=== PATIENT | female | born 1960 | race American Indian/Alaskan Native ===

== ENCOUNTER 2017-11-05 13:00 | Emergency (ER) | payer OTHER ==
[2017-11-05 13:27] VITALS: BP 136/84
[2017-11-05] MEDS ORDERED: ASPIRIN PO ONE (13:27)
[2017-11-05 13:55] LABS: Basophils # (Auto) 0.1 K/mm3 (0.0-0.1); Basophils % (Auto) 0.9 % (0.0-1.8); Eosinophils # (Auto) 0.1 K/mm3 (0.0-0.4); Eosinophils % (Auto) 1.5 % (0.0-4.3); Hematocrit 39.2 % (30.3-42.9); Lymphocytes # (Auto) 2.1 K/mm3 (1.2-5.4); Lymphocytes % (Auto) 25.3 % (13.4-35.0); Mean Corpuscular HGB Conc 33 % (30-34); Mean Corpuscular Hemoglobin 28 pg (28-32); Mean Corpuscular Volume 85 fl (79-97); Monocytes # (Auto) 0.8 K/mm3 (0.0-0.8); Monocytes % (Auto) 9.4 % (0.0-7.3); Platelet Count 229 K/mm3 (140-440); Red Blood Count 4.62 M/mm3 (3.65-5.03); Red Cell Distribution Width 14.9 % (13.2-15.2)
[2017-11-05 14:47] LABS: BUN/Creatinine Ratio 16; Blood Urea Nitrogen 14 mg/dL (7-17); Calcium 9.3 mg/dL (8.4-10.2); Hemolysis Index 36
[2017-11-05] MEDS ORDERED: PEPCID PO ONE (14:54)
[2017-11-05] MEDS ORDERED: TYLENOL PO ONE (14:54)
[2017-11-05] MEDS ORDERED: NITROSTAT SL ONE (14:54)
--- NOTE | 2017-11-05 14:55 | Emergency Department Report ---
HPI - General Chief Complaint: Chest Pain Time Seen by Provider: 11/05/17 14:24 - HPI HPI: The patient is a 57-year-old female who presents for evaluation of chest pain. The patient reports chest pain since yesterday at noon, greater than 25 hours ago, pressure-like in quality, constant since onset, moderate in severity, radiating to the back, and exacerbated with taking deep breaths. The patient denies fever, neck pain, parasthesias, dyspnea, cough, hemoptysis, palpitations , dizziness, syncope, unilateral leg swelling, calf muscle pain. Patient also denies cocaine or other stimulant use, history of DVT or PE, recent immobilization, or history of cancer. ED Past Medical Hx - Past Medical History Hx Hypertension: Yes - Surgical History Additional Surgical History: NEPHRECTOMY LEFT - Social History Smoking Status: Never Smoker Substance Use Type: None - Medications Home Medications: Home Medications Medication Instructions Recorded Confirmed Last Taken Type Cyclobenzaprine HCl [Flexeril 5 MG 5 mg PO Q8HR PRN #15 tab 11/05/17 Unknown Rx TAB] Omeprazole Magnesium [PriLOSEC Otc] 20 mg PO QDAY #14 tablet. 11/05/17 Unknown Rx ED Review of Systems ROS: Stated complaint: CP Other details as noted in HPI Constitutional: denies: fever ENT: denies: throat or neck pain Respiratory: denies: cough, shortness of breath Cardiovascular: reports chest pain Endocrine: denies unexplained weight loss or gain Gastrointestinal: denies: abdominal pain, nausea Genitourinary: denies: dysuria Musculoskeletal: denies: leg swelling Skin: denies: rash Neurological: denies: headache Hematological/Lymphatic: denies: easy bleeding or easy bruising Psych: denies sadness or hopelessness Physical Exam - Physical Exam Vital Signs: Vital Signs 11/05/17 13:21 Temperature 97.8 F Pulse Rate 79 Respiratory 17 Rate Blood Pressure 136/84 O2 Sat by Pulse 100 Oximetry Physical Exam: General: well-nourished, well-developed, no acute distress Head: Normocephalic, atraumatic Eyes: normal sclera ENT: Mucous membranes are pink and moist Neck: trachea midline, neck supple, No neck stiffness, no cervical adenopathy Respiratory: Breath sounds equal bilaterally, no wheezing, rales, or rhonchi Cardio: S1 and S2 present, no murmurs, rubs, gallops, capillary refill is brisk Abdomen: Normoactive bowel sounds, soft abdomen, no rigidity, no guarding or rebound tenderness Musc: No pitting edema Skin: No rash Neuro: no facial drooping, normal speech Psych: Normal affect ED Course Vital Signs 11/05/17 13:21 Temperature 97.8 F Pulse Rate 79 Respiratory 17 Rate Blood Pressure 136/84 O2 Sat by Pulse 100 Oximetry ED Medical Decision Making - Lab Data Result diagrams: 11/05/17 13:45 11/05/17 13:45 - Medical Decision Making The patient was seen and examined by myself. The patient is placed on a monitor tech and continuous pulse ox. On initial evaluation, the patient was found to be in no distress. EKG was negative for findings suggestive of acute cardiac infarct. Labs and imaging are obtained. The patient is given pain medicine. Chest x-ray is negative for pneumothorax, focal consolidation, pulmonary vascular congestion, pleural effusion, or other obvious acute cardiopulmonary disease process. Lab results were non-concerning including levels of troponin obtained greater than 10 hours at the onset of pain, WBC, hemoglobin, hematocrit, electrolytes, renal function, and normal d-dimer level. The patient was reevaluated and reported that their symptoms were markedly improved. As the patient has a PHILIPPE risk score less than 2, and a well's score less than 2, the patient is at low risk of ACS or pulmonary emboli etiology of their symptoms. The patient is stable for discharge with outpatient follow-up. The patient is given follow-up and return instructions. The patient expressed understanding and agreed with the plan. The patient is discharged in stable condition. Critical care attestation.: If time is entered above; I have spent that time in minutes in the direct care of this critically ill patient, excluding procedure time. ED Disposition Clinical Impression: Acute chest pain Disposition: DC-01 TO HOME OR SELFCARE Is pt being admited?: No Does the pt Need Aspirin: No Condition: Stable Instructions: Chest Pain (ED), Costochondritis (ED), Gastroesophageal Reflux Disease (ED) Referrals: RAIMUNDO KENT MD [Staff Physician] - 3-5 Days Time of Disposition: 15:59 Heart Score - HEART Score History: Slightly suspicious EKG: Normal Age: 45-65 Risk factors: 1-2 risk factors Troponin: < normal limit HEART Score: 2
--- NOTE | 2017-11-05 15:24 | XRay Report ---
Chest 2 views: History: Dyspnea. Findings: Normal cardiomediastinal silhouette the trachea is midline. No consolidation, pneumothorax or pleural effusion. Impression: No acute cardiopulmonary findings.
== END 2017-11-05 16:24 | disposition home or self-care (01) ==
LOC: ED 13:00
DX: R07.89 Other chest pain (principal); I10 Essential (primary) hypertension
CPT/HCPCS: 36415; 71046; 80048; 84484; 85025; 85379; 93005; 93010; 99284